=== PATIENT | female | born 1940 | race African-American/Black ===

== ENCOUNTER 2018-03-21 12:19 | Observation (INO) | payer MEDICARE ==
[~2018-03-21] VITALS: Ht 167.6 cm; Wt 98.9 kg
[2018-03-21] MEDS ORDERED: SODIUM CHLORIDE 0.9% 500 ML IV ONE (12:56)
[2018-03-21] MEDS ORDERED: ASPIRIN 81MG TABLET PO STA (12:56)
[2018-03-21 13:22] LABS: BASOPHILS % 0.8 % (0.0-2.0); EOSINOPHILS % 2.1 % (0.0-5.0); HEMATOCRIT. 36.9 % (36.0-48.0); HEMOGLOBIN. 12.2 g/dL (12.0-16.0); LYMPHOCYTES % 36.2 % (20.0-50.0); MEAN CORPUSCULAR HEMOGLOBIN 28.9 pg (28.0-32.0); MEAN CORPUSCULAR VOLUME 87.5 fL (81.0-99.0); MEAN PLATELET VOLUME 8.4 fl (7.4-10.4); MONOCYTES % 9.8 % (2.0-8.0); NEUTROPHILS % 51.1 % (40.0-76.0); PLATELET 196 x1000/uL (130-400); RED BLOOD CELL COUNT 4.22 mill/uL (4.2-5.4)
[2018-03-21 13:27] LABS: CHLORIDE 109 mEq/L (98-107)
[2018-03-21 13:32] LABS: D-DIMER 1.27 mg/L FEU (<0.50); PARTIAL THROMBOPLASTIN TIME 25.5 sec (23.4-31.0); PROTHROMBIN TIME 10.7 sec (9.4-11.6)
[2018-03-21 15:42] LABS: CLARITY URINE CLOUDY (CLEAR); COLOR URINE YELLOW (YELLOW); KETONES URINE NEGATIVE (NEGATIVE); LEUKOCYTE ESTERASE URINE 3+ (NEGATIVE); NITRITE URINE NEGATIVE (NEGATIVE); OCCULT BLOOD URINE NEGATIVE (NEGATIVE); PH URINE 7.5 (4.5-8.0); PROTEIN URINE NEGATIVE (NEGATIVE); SPECIFIC GRAVITY URINE 1.007 (1.005-1.030); UROBILINOGEN URINE 0.2 E.U./dL (0.2-1.0)
[2018-03-21] MEDS ORDERED: LEVOFLOXACIN 500MG PREMIX 100 ML IV ONE (16:45)
[2018-03-21] MEDS ORDERED: IOHEXOL-350 100 ML BOTTLE ONE (18:24)
[2018-03-21] MEDS ORDERED: POTASSIUM CHLORIDE 20MEQ TABLET SR PO NR (18:30)
[2018-03-21] MEDS ORDERED: ACETAMINOPHEN 650MG SUPP PR PRN (19:45)
[2018-03-21] MEDS ORDERED: ACETAMINOPHEN 325MG TABLET PO PRN (19:45)
[2018-03-21] MEDS ORDERED: MAGNESIUM/ALUMINUM HYDROXIDE/SIMETHICONE 30ML UDC PO PRN (19:45)
[2018-03-21] MEDS ORDERED: DIPHENHYDRAMINE 50MG/ML VIAL IV PRN (19:45)
[2018-03-21] MEDS ORDERED: NA PHOS,M-B/NA PHOS,DI-BA ENEMA 118ML PR PRN (19:45)
[2018-03-21] MEDS ORDERED: ONDANSETRON HCL 4MG/2ML VIAL IV PRN (19:45)
[2018-03-21] MEDS ORDERED: CLONIDINE 0.1MG TABLET PO PRN (19:45)
[2018-03-21] MEDS ORDERED: IPRATROPIUM/ALBUTEROL 0.5-3(2.5)MG/3ML NEB INH PRN (19:45)
[2018-03-21] MEDS ORDERED: GUAIFENESIN 200MG/10ML SUGAR FREE UDC PO PRN (19:45)
[2018-03-21] MEDS ORDERED: HYDROCODONE/ACETAMINOPHEN 5/325MG TABLET PO PRN (19:45)
[2018-03-21 20:00] VITALS: BP 136/76
[2018-03-21 20:52] VITALS: BP 136/76
[2018-03-21] MEDS ORDERED: ATORVASTATIN CALCIUM 10MG TABLET PO SCH (21:00)
[2018-03-21] MEDS ORDERED: SODIUM CHLORIDE 0.45% 1,000 ML IV SCH (22:00)
[2018-03-21] MEDS ORDERED: METOPROLOL TARTRATE 25MG TABLET PO SCH (22:00)
[2018-03-21 22:09] LABS: *COCAINE SCREEN URINE NEGATIVE (NEGATIVE); CANNABINOID URINE SCREEN NEGATIVE (NEGATIVE); METHADONE URINE SCREEN NEGATIVE (NEGATIVE); OPIATES URINE SCREEN NEGATIVE (NEGATIVE); PHENCYCLIDINE URINE SCREEN NEGATIVE (NEGATIVE)
[2018-03-21 22:10] LABS: *AMPHETAMINES SCREEN URINE NEGATIVE (NEGATIVE); *BARBITURATES SCREEN URINE NEGATIVE (NEGATIVE); *BENZODIAZEPINES SCREEN URINE NEGATIVE (NEGATIVE)
[2018-03-21 23:38] LABS: CREATINE KINASE 257 IU/L (26-192)
[2018-03-22] VITALS: BP 119/55
[2018-03-22 04:00] VITALS: BP 112/49
[2018-03-22 06:48] LABS: BASOPHILS % 0.6 % (0.0-2.0); EOSINOPHILS % 2.9 % (0.0-5.0); HEMATOCRIT. 36.3 % (36.0-48.0); LYMPHOCYTES % 36.6 % (20.0-50.0); MEAN CORPUSCULAR HEMOGLOBIN 29.2 pg (28.0-32.0); MEAN CORPUSCULAR VOLUME 88.1 fL (81.0-99.0); MEAN PLATELET VOLUME 9.4 fl (7.4-10.4); MONOCYTES % 12.1 % (2.0-8.0); NEUTROPHILS % 47.8 % (40.0-76.0); PLATELET 178 x1000/uL (130-400); RED BLOOD CELL COUNT 4.12 mill/uL (4.2-5.4); RED CELL DISTRIBUTION WIDTH 13.9 % (11.6-14.6)
[2018-03-22 08:00] VITALS: BP 110/54
[2018-03-22] MEDS ORDERED: ASPIRIN 81MG TABLET PO SCH (09:00)
[2018-03-22] MEDS ORDERED: METOPROLOL TARTRATE 50MG TABLET PO SCH (09:00)
[2018-03-22] MEDS ORDERED: ENOXAPARIN 40MG/0.4ML SYR SUBCUT SCH (09:00)
[2018-03-22 10:59] LABS: CHLORIDE 107 mEq/L (98-107)
[2018-03-22 11:16] LABS: HDL CHOLESTEROL 55 mg/dL (40-59); LDL CHOLESTEROL 64 mg/dL (5-100)
[2018-03-22 11:18] LABS: T4 FREE 0.95 ng/dL (0.76-1.46)
[2018-03-22] MEDS ORDERED: POTASSIUM CHLORIDE 20MEQ TABLET SR PO SCH (11:30)
[2018-03-22 12:00] VITALS: BP 139/65
[2018-03-22 16:00] VITALS: BP 126/63
[2018-03-22 16:45] VITALS: BP 139/65
[2018-03-22] MEDS ORDERED: LEVOFLOXACIN 500MG PREMIX 100 ML IV SCH ×2 (17:00→18:00)
[2018-03-22] MEDS ORDERED: METOPROLOL TARTRATE 25MG TABLET PO SCH (21:00)
[2018-03-22] MEDS ORDERED: ENOXAPARIN 30MG/0.3ML SYR SUBCUT SCH (21:00)
== END 2018-03-22 18:54 | disposition home or self-care (01) ==
LOC: ER 12:41 → EDBEDREQ 16:29 → EDBEDREQTM 16:29 → SUPCPDRO 17:01 → ENRESERV 19:57 → INTOOBSV 21:44 → 8WST 21:44
PROVIDERS: ADMIT Internal Medicine; ATTEND Internal Medicine
DX: R07.89 Other chest pain (principal); I11.0 Hypertensive heart disease with heart failure; I50.32 Chronic diastolic (congestive) heart failure; R55 Syncope and collapse; R00.2 Palpitations; E78.5 Hyperlipidemia, unspecified; R79.1 Abnormal coagulation profile; E78.00 Pure hypercholesterolemia, unspecified; E86.0 Dehydration; E66.9 Obesity, unspecified; Z86.73 Personal history of transient ischemic attack (TIA), and cerebral infarction without residual deficits; Z79.899 Other long term (current) drug therapy
CPT/HCPCS: 36415; 71045; 71275; 80053; 80061; 80305; 81003; 82550; 82553; 83690; 83880; 84439; 84443; 84484; 85025; 85379; 85610; 85730; 93005; 93306; 93970; 96361; 96365; 96372; 99285; G0378; J1650; J1956; J7030; J7040; Q9967; 96366

== ENCOUNTER 2018-07-02 16:56 | Inpatient (IN) | payer MEDICARE, OTHER ==
[~2018-07-02] VITALS: Ht 167.6 cm; Wt 98.0 kg
[2018-07-02 19:28] LABS: INR 1.4; PROTHROMBIN TIME 13.7 sec (9.1-11.1)
[2018-07-02 19:33] LABS: CHLORIDE 107 mEq/L (98-107)
[2018-07-02 19:36] LABS: BASOPHILS % 0.4 % (0.0-2.0); EOSINOPHILS % 1.2 % (0.0-5.0); HEMATOCRIT. 39.3 % (36.0-48.0); HEMOGLOBIN. 12.9 g/dL (12.0-16.0); LYMPHOCYTES % 20.1 % (20.0-50.0); MEAN CORPUSCULAR HEMOGLOBIN 29.1 pg (28.0-32.0); MEAN PLATELET VOLUME 8.7 fl (7.4-10.4); MONOCYTES % 8.7 % (2.0-8.0); NEUTROPHILS % 69.6 % (40.0-76.0); PLATELET 214 x1000/uL (130-400); RED BLOOD CELL COUNT 4.41 mill/uL (4.2-5.4); RED CELL DISTRIBUTION WIDTH 14.9 % (11.6-14.6)
[2018-07-02] MEDS ORDERED: IOHEXOL-350 100 ML BOTTLE ONE (22:23)
[2018-07-02] MEDS ORDERED: FUROSEMIDE 40MG/4ML VIAL IVP ONE (22:45)
[2018-07-03] MEDS ORDERED: ASPI-1158 PO (00:45)
[2018-07-03] MEDS ORDERED: METO25TA6 PO (00:45)
[2018-07-03] MEDS ORDERED: ATOR40TA70 PO (00:45)
[2018-07-03] MEDS ORDERED: AMLO5TAB88 PO (00:45)
[2018-07-03 01:06] VITALS: BP 148/62
[2018-07-03 02:22] LABS: CREATINE KINASE 91 IU/L (26-192); CREATINE KINASE MB FRACTION < 1.0 ng/mL (0.5-3.6)
[2018-07-03 04:00] VITALS: BP 124/57
[2018-07-03 06:28] LABS: BASOPHILS % 0.4 % (0.0-2.0); EOSINOPHILS % 1.4 % (0.0-5.0); HEMATOCRIT. 37.2 % (36.0-48.0); HEMOGLOBIN. 12.6 g/dL (12.0-16.0); LYMPHOCYTES % 35.7 % (20.0-50.0); MEAN CORPUSCULAR HEMOGLOBIN 29.8 pg (28.0-32.0); MONOCYTES % 10.5 % (2.0-8.0); PLATELET 211 x1000/uL (130-400); RED BLOOD CELL COUNT 4.22 mill/uL (4.2-5.4); RED CELL DISTRIBUTION WIDTH 14.5 % (11.6-14.6)
[2018-07-03 07:14] LABS: CHLORIDE 104 mEq/L (98-107)
[2018-07-03 07:37] LABS: HDL CHOLESTEROL 64 mg/dL (40-59); LDL CHOLESTEROL 101 mg/dL (5-100)
[2018-07-03 08:00] VITALS: BP 124/50
[2018-07-03] MEDS ORDERED: MEDICATION NOT ON FORMULARY EA (Metoprolol Tartrate 25 MG) PO SCH (09:00)
[2018-07-03] MEDS ORDERED: MEDICATION NOT ON FORMULARY EA (Amlodipine Besylate 5 MG) PO SCH (09:00)
[2018-07-03] MEDS ORDERED: METOPROLOL TARTRATE 25MG TABLET PO SCH (09:00)
[2018-07-03] MEDS: AMLODIPINE 5MG TABLET PO SCH (09:50)
[2018-07-03] MEDS: ASPIRIN 81MG TABLET PO SCH (09:50)
[2018-07-03 11:55] LABS: CREATINE KINASE 91 IU/L (26-192); CREATINE KINASE MB FRACTION < 1.0 ng/mL (0.5-3.6)
[2018-07-03 12:00] VITALS: BP 118/47
[2018-07-03 16:00] VITALS: BP 109/36
[2018-07-03 20:00] VITALS: BP_SYST 118; BP_SYST 132; BP_SYST 143; BP_DIAS 48; BP_DIAS 54; BP_DIAS 64
[2018-07-03] MEDS: METOPROLOL TARTRATE 25MG TABLET PO SCH (20:58)
[2018-07-03] MEDS ORDERED: ATORVASTATIN CALCIUM 40MG TABLET PO SCH (21:00)
[2018-07-03 22:28] LABS: CREATINE KINASE 104 IU/L (26-192); CREATINE KINASE MB FRACTION < 1.0 ng/mL (0.5-3.6)
[2018-07-04] VITALS: BP 133/54
[2018-07-04 04:00] VITALS: BP 133/65
[2018-07-04 06:31] LABS: BASOPHILS % 0.5 % (0.0-2.0); HEMATOCRIT. 38.8 % (36.0-48.0); HEMOGLOBIN. 13.1 g/dL (12.0-16.0); MEAN CORPUSCULAR HEMOGLOBIN 29.7 pg (28.0-32.0); MEAN CORPUSCULAR VOLUME 88.3 fL (81.0-99.0); MEAN PLATELET VOLUME 9.1 fl (7.4-10.4); MONOCYTES % 11.4 % (2.0-8.0); NEUTROPHILS % 47.1 % (40.0-76.0); PLATELET 219 x1000/uL (130-400); RED BLOOD CELL COUNT 4.39 mill/uL (4.2-5.4); RED CELL DISTRIBUTION WIDTH 14.7 % (11.6-14.6)
[2018-07-04 08:00] VITALS: BP 114/41
[2018-07-04] MEDS: METOPROLOL TARTRATE 25MG TABLET PO SCH (08:09)
[2018-07-04] MEDS: AMLODIPINE 5MG TABLET PO SCH (08:09)
[2018-07-04] MEDS: ASPIRIN 81MG TABLET PO SCH (08:10)
[2018-07-04 08:11] LABS: CHLORIDE 104 mEq/L (98-107)
[2018-07-04 12:00] VITALS: BP 131/68
[2018-07-04 16:00] VITALS: BP 106/43
[2018-07-04 19:22] VITALS: BP 130/59
== END 2018-07-04 19:30 | disposition home or self-care (01) | DRG 73 ==
LOC: ER 16:56 → 5WST 22:45 → ENRESERV 22:56
PROVIDERS: ADMIT Internal Medicine; ATTEND Internal Medicine
DX: G90.8 Other disorders of autonomic nervous system (principal); I50.33 Acute on chronic diastolic (congestive) heart failure; G45.9 Transient cerebral ischemic attack, unspecified; E78.5 Hyperlipidemia, unspecified; I11.0 Hypertensive heart disease with heart failure; E66.9 Obesity, unspecified; I49.8 Other specified cardiac arrhythmias; E78.00 Pure hypercholesterolemia, unspecified; Z88.0 Allergy status to penicillin; Z88.1 Allergy status to other antibiotic agents; Z86.73 Personal history of transient ischemic attack (TIA), and cerebral infarction without residual deficits; Z79.899 Other long term (current) drug therapy; Z68.34 Body mass index [BMI] 34.0-34.9, adult
CPT/HCPCS: 36415; 70551; 71045; 71275; 80048; 80061; 82550; 82553; 83605; 83735; 83880; 84443; 84484; 85379; 93005; 93306; 93880; 99285; J1940; Q9967